=== PATIENT | male | born 1955 | race Caucasian/White ===

== ENCOUNTER 2018-08-22 11:49 | Outpatient (CLI) | payer OTHER ==
[2018-08-22 13:29] LABS: #Basophils 0.1 thou/uL (0.0-0.2); #Eosinphils 0.7 thou/uL (0.0-0.7); #Lymphocytes 1.3 thou/uL (1.20-3.40); #Monocytes 0.6 thou/uL (0.11-0.59); #Neutrophils 5.7 thou/uL (1.40-6.50); %Basophils 0.9 % (0.0-1.0); %Eosinophils 8.2 % (0.0-10.0); %Lymphocytes 15.6 % (21.0-51.0); %Monocytes 6.8 % (0.0-10.0); %Neutrophils 68.6 % (42.0-75.0); Hemoglobin 15.5 g/dL (14.0-18.0); Mean Corpuscular Hemoglobin 30.8 pg (27.0-31.0); Mean Corpuscular Volume 93.5 fL (78.0-98.0); Mean Platelet Volume 7.6 fL (7.4-10.4); Platelet Count 212 thou/uL (130-400); RBC Distribution Width 12.7 % (11.5-14.5); Red Blood Cell (RBC) Count 5.01 mill/uL (4.70-6.10); White Blood Cell (WBC) Count 8.2 thou/uL (4.8-10.8)
[2018-08-22 13:51] LABS: Anion Gap 12 mmol/L (10-20); BUN (Urea Nitrogen) 20 mg/dL (8.4-25.7); Calc. Creatinine Clearance 0 mL/min (70-130); Carbon Dioxide 26 mmol/L (23-31); Chloride 106 mmol/L (98-107); Estimated GFR-MDRD Greater than 90; Glucose 104 mg/dL (80-115); Potassium 3.6 mmol/L (3.5-5.1); Sodium 140 mmol/L (136-145)
--- NOTE | 2018-08-24 16:36 | EKG ---
Test Reason : Blood Pressure : / mmHG Vent. Rate : 067 BPM Atrial Rate : 067 BPM P-R Int : 140 ms QRS Dur : 142 ms QT Int : 424 ms P-R-T Axes : 054 098 038 degrees QTc Int : 448 ms Normal sinus rhythm Right bundle branch block Abnormal ECG No previous ECGs available Confirmed by DR. Consuelo GRESHAM ([id number]) on 08/24/2018 4:36:14 PM Referred By: AYALA Confirmed By:DR. Consuelo GRESHAM
== END 2018-08-22 11:50 | disposition home or self-care (01) ==
LOC: LABBT 11:49
PROVIDERS: ATTEND Orthopaedic Surgery
DX: Z01.818 Encounter for other preprocedural examination (principal); S83.242A Other tear of medial meniscus, current injury, left knee, initial encounter
CPT/HCPCS: 80048; 85025; 93005; 93010

== ENCOUNTER 2018-08-31 05:36 | Day surgery (SDC) | payer OTHER ==
[2018-08-22 12:13] VITALS: BMI 23.5
[2018-08-31] MEDS ORDERED: PROPOFOL 20 ML ONE (06:22)
[2018-08-31] MEDS ORDERED: Fentanyl 100 MCG/2 ML VIAL ONE (07:12)
--- NOTE | 2018-08-31 09:24 | OP ---
DATE OF PROCEDURE: 08/31/2018 PREOPERATIVE DIAGNOSIS: Medial meniscus tear, left knee. POSTOPERATIVE DIAGNOSIS: Medial meniscus tear, left knee. ANESTHESIA: General. ESTIMATED BLOOD LOSS: Minimal. SPECIMENS: None. DRAINS: None. COMPLICATIONS: None. DESCRIPTION OF PROCEDURE: The patient was taken to the operating room, where general anesthesia was induced. Left leg was prepped and draped in usual sterile fashion. The scope was placed in the lateral portal, and probe was placed in the medial portal. Patellofemoral joint was free of disease. There was no significant arthritis. There was a complex tear of the posterior horn of the medial meniscus. This was debrided using basket forceps, smoothened using a 4.0 full radius resector. The knee was irrigated and drained. Gutters were swept for loose bodies. There were no loose bodies. Sterile dressing was applied. There were no complications. Job ID: [id number]
[2018-08-31] MEDS ORDERED: Bupivacaine HCl 0.5%/Epinephrine 1:200,000/PF 30 ml Vial ONE (10:08)
[2018-08-31] MEDS ORDERED: Lidocaine 2% w/Epinephrine 1:200K 20 ML VIAL ONE (10:08)
[2018-08-31] MEDS ORDERED: PROPOFOL 200 MG/20 ML VIAL ONE (10:40)
[2018-08-31] MEDS ORDERED: Ondansetron PF 4 MG/2 ML Vial ONE (10:40)
[2018-08-31] MEDS ORDERED: Dexamethasone 20 MG/5 ML VIAL ONE (10:40)
[2018-08-31] MEDS ORDERED: Lidocaine 1% PF 5 ML VIAL ONE (10:40)
[2018-08-31] MEDS ORDERED: Ketorolac Tromethamine 30 MG/ML VIAL ONE (10:40)
== END 2018-08-31 10:35 | disposition home or self-care (01) ==
LOC: SDC 05:36
PROVIDERS: ATTEND Orthopaedic Surgery
PROC: 0SBD4ZZ Excision of Left Knee Joint, Percutaneous Endoscopic Approach (ICD-10-PCS; principal; 2018-08-31)
DX: S83.232A Complex tear of medial meniscus, current injury, left knee, initial encounter (principal); I10 Essential (primary) hypertension; M19.90 Unspecified osteoarthritis, unspecified site; Z79.899 Other long term (current) drug therapy
CPT/HCPCS: J2704; J3010